=== PATIENT | female | born 1945 | race Caucasian/White ===

== ENCOUNTER → 2022-07-18 11:28 | Outpatient (CLI) | payer MEDICARE, SELFPAY ==
--- NOTE | ~2022-07-18 | XR_ITS ---
EXAMINATION: XR lumbar spine 2-3V DATE: 07/18/2022 11:42 INDICATION: Low back pain TECHNIQUE: Anteroposterior and lateral views of the lumbar spine, and cone-down lateral view of the l umbosacral junction were obtained. COMPARISON: None. FINDINGS: There are 2 mm of retrolisthesis of L5 on S1 and 2 mm of anterolisthesis of L4 on L5. There is no fracture. The vertebral body heights are maintained. There is moderate loss of intervertebral disc space height at L5-S1. There is mild loss of intervertebral disc space height throughout the rem ainder of the lumbar spine. The bowel gas pattern is normal. Calcified atherosclerosis is noted. Smal l degenerative osteophytes project from the anterior endplates of multiple vertebral bodies. IMPRESSION: 1. Mild to moderate lumbar spondylosis without acute findings. Reviewed, dictated and finalized at location B.
== END ==
PROVIDERS: PCP Family Medicine Adolescent Medicine; Visit Provider Family Medicine Adolescent Medicine
DX: M47.896 Other spondylosis, lumbar region (principal)
CPT/HCPCS: 72100

== ENCOUNTER 2022-11-10 11:23 | Emergency (ER) | payer MEDICARE, SELFPAY ==
--- NOTE | 2022-11-10 11:25 | ED.URI ---
HPI - URI/Sore Throat General Chief Complaint: Upper Respiratory Infection Stated Complaint: sinus inf Time Seen by Provider: 11/10/22 11:25 Source: patient and RN notes reviewed History of Present Illness HPI Narrative: Patient is a 77-year-old female who presents to urgent care with complaints of possible sinus infection. Patient states that she has had nasal congestion, rhinorrhea and facial pain for 1 week which exacerbated yesterday with left-sided facial swelling and pain. Patient has been taking [id number] allergy medication. Denies any fevers. Denies any cough or shortness of breath. No other acute complaints. No acute distress noted. Patient aware of the plan of care. Some parts of this dictation were generated by voice recognition software and may contain typographical and/or grammatical inaccuracies. Related Data Home Medications Medication Instructions Recorded Confirmed cholecalciferol (vitamin D3) 25 25 mcg PO DAILY 12/03/21 11/10/22 mcg (1,000 unit) capsule Allergies Allergy/AdvReac Type Severity Reaction Status Date / Time No Known Allergies Allergy Verified 11/10/22 11:51 Review of Systems Review of Systems: CONSTITUTIONAL: Denies fever, chills, or sweats. EYES: Denies visual changes, redness, or discharge. ENT: Reports rhinorrhea, nasal congestion, postnasal drainage and left-sided facial pressure and pain CARDIOVASCULAR: Denies chest pain, palpitations, or edema. RESPIRATORY: Denies cough or dyspnea. GASTROINTESTINAL: Denies abdominal pain, nausea, vomiting, or diarrhea. GENITOURINARY: Denies dysuria or hematuria. SKIN: Denies rash or itching. MUSCULOSKELETAL: Denies back pain, joint pain, or myalgia. NEUROLOGIC: Denies headache, numbness, or weakness. All other systems reviewed are negative, except as documented in HPI. [facility] Surgical History Surgical History History of appendectomy 2006 Family History Family History Father Diabetes mellitus Alzheimer's dementia Mother Hypertension Carcinoma of colon Rheumatoid arthritis Ovarian cancer Social History Social History (Updated 12/03/21 @ 14:56 by Mercy Mcgovern MA) Smoking status: Never smoker Second hand tobacco smoke exposure: No Alcohol intake: never Substance use: never Substance use type: does not use Living arrangements: with family Occupation/Education: occupation Gender identity (if verbalized by the patient): Female Sexual Orientation (if Verbalized by the Patient): Straight or Heterosexual Spiritual care concerns: No Agree to blood products: Yes Comments At the time of my signature, I reviewed and agree with the nursing past medical, surgical, social, and family history. There is no relevant family history pertinent to the patient complaint. Exam Narrative: GENERAL: This is a well-nourished, well-developed patient, in no apparent distress. HEAD: normocephalic, atraumatic. EYES: PERRL. Sclera clear/white. Vision is grossly intact. EARS: External ears normal, auditory canals clear and without drainage, TMs normal without perforation. Hearing grossly intact. NOSE: External nose normal with no obvious nasal discharge, mild bilateral erythema nares with clear rhinorrhea THROAT: Mucous membranes moist, posterior pharynx clear. Moderate postnasal drainage DENTAL: Mild to moderate edema and erythema noted to the left upper quadrant near crowned molars NECK: Neck supple, non-tender without lymphadenopathy RESPIRATORY: Clear to auscultation. Breath sounds equal bilaterally. No wheezes, rales, or rhonchi. . SKIN: warm, intact with no suspicious lesions or rash, good texture and turgor. NEURO: awake, alert, and oriented to person, place and time. There were no obvious focal neurologic abnormalities. EXTREMITIES: No clubbing, cyanosis, or edema. Course Course Level of Care: Ex
[2022-11-10 11:55] VITALS: BP 131/63; PULSE 68; RESP 16; TEMP 36.7; O2SAT 100
== END 2022-11-10 12:09 | disposition home or self-care (01) ==
PROVIDERS: Emergency Provider Nurse Practitioner Family; PCP Family Medicine Adolescent Medicine
DX: K06.1 Gingival enlargement (principal); J32.1 Chronic frontal sinusitis
CPT/HCPCS: 99213; G0463

== ENCOUNTER → 2023-05-13 08:57 | Outpatient (CLI) | payer MEDICARE, SELFPAY ==
--- NOTE | ~2023-05-13 | XR_ITS ---
EXAMINATION: XR shoulder LT min 2V DATE: 05/13/2023 09:17 INDICATION: Left shoulder pain. TECHNIQUE: 4 views of left shoulder were obtained. COMPARISON: None. FINDINGS: Bone alignment is normal. No fracture. There is mild osteoarthritis of glenohumeral joint a nd moderate osteoarthritis of acromioclavicular joint. IMPRESSION: 1. Polyarticular osteoarthritis. Reviewed, dictated and finalized at location A.
== END ==
PROVIDERS: PCP Family Medicine Adolescent Medicine; Visit Provider Nurse Practitioner Family
DX: M19.012 Primary osteoarthritis, left shoulder (principal)
CPT/HCPCS: 73030

== ENCOUNTER 2023-05-26 10:01 | Emergency (ER) | payer MEDICARE, SELFPAY ==
[2023-05-26 10:14] VITALS: BP 122/91; PULSE 66; RESP 20; TEMP 36.2; O2SAT 99
--- NOTE | 2023-05-26 10:17 | ED.EXTPRO ---
HPI - Extremity Problem General Chief complaint: Extremity Injury, Upper Stated complaint: Pain in Left shoulder Time Seen by Provider: 05/26/23 10:17 Source: patient, RN notes reviewed and old records reviewed Mode of arrival: ambulatory Limitations: no limitations History of Present Illness HPI Narrative: 78-year-old female presents to the [facility] with complaints of continued pain in the left shoulder. States that she has had pain since February. Has been prescribe steroid my primary. Was also prescribed meloxicam and takes daily. Recently had an x-ray 05/13/23 which showed Polyarticular osteoarthritis. Patient states the pain has just continued. Was hoping for either different pain medication or an injection into the shoulder to help. Has an appointment with Ortho at [facility] June 05 Onset (ago): month(s) (2+) Related Data Home Medications Medication Instructions Recorded Confirmed cholecalciferol (vitamin D3) 25 25 mcg PO DAILY 12/03/21 05/26/23 mcg (1,000 unit) capsule Allergies Allergy/AdvReac Type Severity Reaction Status Date / Time No Known Allergies Allergy Verified 05/26/23 10:29 Review of Systems Review of Systems: All systems reviewed & are unremarkable except as noted in HPI and below Constitutional: Constitutional: Reports no additional constitutional complaints Eyes: Eyes: Reports no additional eye complaints ENT: Reports system reviewed and no additional complaints, except as documented Cardiovascular: Cardiovascular: Reports no additional cardiovascular complaints, Denies chest pain and Denies dyspnea Respiratory: Respiratory: Reports no additional respiratory complaints, Denies chest congestion, Denies cough and Denies dyspnea Gastrointestinal: Gastrointestinal: Reports no additional gastrointestinal complaints, Denies abdominal pain, Denies nausea and Denies vomiting Musculoskeletal: Musculoskeletal: Reports as per HPI and Reports arthralgias (left shoulder) Integumentary/Breasts: Skin/Breast: Reports system reviewed and no additional complaints, except as docu Neurologic: Reports system reviewed and no additional complaints, except as documented Psychiatric: Psychiatric: Reports no additional psychiatric complaints Allergic/Immunologic: Allergic/Immunologic: Reports no additional allergic/immunologic complaints PMFSH Past Medical History Medical History Aortic atherosclerosis CXR 01/11 Cystocele Essential (primary) hypertension Mixed hyperlipidemia Overactive bladder Surgical History Surgical History History of appendectomy 2006 Family History Family History Father Diabetes mellitus Alzheimer's dementia Mother Hypertension Carcinoma of colon Rheumatoid arthritis Ovarian cancer Social History Social History Smoking status: Never smoker Second hand tobacco smoke exposure: No Alcohol intake: never Substance use: never Substance use type: does not use Living arrangements: with family Occupation/Education: occupation Gender identity (if verbalized by the patient): Female Sexual Orientation (if Verbalized by the Patient): Straight or Heterosexual Spiritual care concerns: No Agree to blood products: Yes Comments At the time of my signature, I reviewed and agree with the nursing past medical, surgical, social, and family history. There is no relevant family history pertinent to the patient complaint. Exam Const: General: cooperative, healthy appearing, comfortable, no acute distress, well developed, alert and well nourished Nutritional Appearance: well nourished Orientation/consciousness: patient oriented x3 Limitations: no limitations HENMT: Head: normal to inspection Ears: hearing grossly normal bilaterally
== END 2023-05-26 10:32 | disposition home or self-care (01) ==
PROVIDERS: Emergency Provider Nurse Practitioner; PCP Family Medicine Adolescent Medicine
DX: M77.8 Other enthesopathies, not elsewhere classified (principal); M15.9 Polyosteoarthritis, unspecified; I70.0 Atherosclerosis of aorta; I10 Essential (primary) hypertension; E78.2 Mixed hyperlipidemia
CPT/HCPCS: 99213; A4565; G0463

== ENCOUNTER 2023-06-18 11:18 | Emergency (ER) | payer MEDICARE, SELFPAY ==
--- NOTE | 2023-06-18 11:26 | ED.URI ---
HPI - URI/Sore Throat General Chief Complaint: Upper Respiratory Infection Stated Complaint: Lethargic,Back Pain,Throat Irritation Source: patient and RN notes reviewed Mode of arrival: ambulatory Limitations: no limitations History of Present Illness HPI Narrative: Patient is a 78-year-old female who presents to the [facility] with complaints nausea, headache, and sore throat for the past 3 and half days. Patient also endorses some generalized body aches and chills. She denies abdominal pain, vomiting, diarrhea. Denies chest pain, shortness of breath, cough, congestion. She is unsure of any sick contacts. She does not appear in any acute distress. Related Data Home Medications Medication Instructions Recorded Confirmed cholecalciferol (vitamin D3) 25 25 mcg PO DAILY 12/03/21 06/18/23 mcg (1,000 unit) capsule Allergies Allergy/AdvReac Type Severity Reaction Status Date / Time No Known Allergies Allergy Verified 06/18/23 11:39 Review of Systems Review of Systems: CONSTITUTIONAL: Denies fever or sweats. Reports chills EYES: Denies visual changes, redness, or discharge. ENT: Denies otalgia. Reports sore throat. CARDIOVASCULAR: Denies chest pain, palpitations, or edema. RESPIRATORY: Denies cough or dyspnea. GASTROINTESTINAL: Denies abdominal pain, vomiting, or diarrhea. Reports nausea. GENITOURINARY: Denies dysuria or hematuria. SKIN: Denies rash or itching. MUSCULOSKELETAL: Denies joint pain. Reports myalgia. NEUROLOGIC: Reports headache but denies numbness or weakness. Pertinent positives per HPI. [facility] Past Medical History Medical History Aortic atherosclerosis CXR 01/11 Cystocele Essential (primary) hypertension Mixed hyperlipidemia Overactive bladder Surgical History Surgical History History of appendectomy 2006 Family History Family History Father Diabetes mellitus Alzheimer's dementia Mother Hypertension Carcinoma of colon Rheumatoid arthritis Ovarian cancer Social History Social History Smoking status: Never smoker Second hand tobacco smoke exposure: No Alcohol intake: never Substance use: never Substance use type: does not use Living arrangements: with family Occupation/Education: occupation Gender identity (if verbalized by the patient): Female Sexual Orientation (if Verbalized by the Patient): Straight or Heterosexual Spiritual care concerns: No Agree to blood products: Yes Comments At the time of my signature, I reviewed and agree with the nursing past medical, surgical, social, and family history. There is no relevant family history pertinent to the patient complaint. Exam Narrative: GENERAL: This is a well-nourished, well-developed patient, in no apparent distress. HEAD: normocephalic, atraumatic. EYES: PERRL. Sclera clear/white. Vision is grossly intact. EARS: External ears normal, auditory canals clear and without drainage, TMs normal without perforation. Hearing grossly intact. NOSE: External nose normal with no obvious nasal discharge, nares without redness, no rhinorrhea. THROAT: Mucous membranes moist, Oropharyngeal erythema without exudate or ulceration. NECK: Neck supple, non-tender without lymphadenopathy, masses or thyromegaly. CARDIOVASCULAR: Regular rate and rhythm without murmurs, gallops, or rubs. RESPIRATORY: Clear to auscultation. Breath sounds equal bilaterally. No wheezes, rales, or rhonchi. GASTROINTESTINAL: Abdomen soft, non-tender, nondistended. Bowel sounds are active. No hepato-splenomegaly, or palpable masses. No guarding. SKIN: warm, intact with no suspicious lesions or rash, good texture and turgor. NEURO: awake, alert, and oriented to person, place and time. There were no obvious focal neurolo
[2023-06-18 11:34] VITALS: BP 102/66; PULSE 82; RESP 16; TEMP 36.3; O2SAT 99
== END 2023-06-18 12:00 | disposition home or self-care (01) ==
PROVIDERS: Emergency Provider Nurse Practitioner; PCP Family Medicine Adolescent Medicine
DX: B34.9 Viral infection, unspecified (principal); E78.2 Mixed hyperlipidemia; I10 Essential (primary) hypertension; Z20.822 Contact with and (suspected) exposure to COVID-19
CPT/HCPCS: 87081; 87426; 87804; 87880; 99213; C9803; G0463

== ENCOUNTER 2023-09-19 10:07 | Emergency (ER) | payer MEDICARE, SELFPAY ==
[2023-09-19 10:23] VITALS: BP 152/90; PULSE 86; RESP 16; TEMP 36.9; O2SAT 98
--- NOTE | 2023-09-19 10:44 | ED.URI ---
HPI - URI/Sore Throat General Chief Complaint: Upper Respiratory Infection Stated Complaint: Sore Throat History of Present Illness HPI Narrative: 78 y/o female presented for c/o cough, and head congestion for about 3 days. Denies sob, wheezing, n/v/d/f/c. Taking coricidin and cough drops. Took home covid test but does not know how to read it, states she saw a few lines. Related Data Home Medications Medication Instructions Recorded Confirmed cholecalciferol (vitamin D3) 25 25 mcg PO DAILY 12/03/21 09/19/23 mcg (1,000 unit) capsule fluticasone propionate 50 2 spray intranasal .PRN 09/09/23 09/19/23 mcg/actuation nasal spray,suspension (Flonase Allergy Relief) meloxicam 15 mg tablet 15 mg PO .PRN PRN Mild Pain (Scale 09/09/23 09/19/23 Score 1-4) Allergies Allergy/AdvReac Type Severity Reaction Status Date / Time No Known Allergies Allergy Verified 09/19/23 10:22 Review of Systems Review of Systems: CONSTITUTIONAL: Denies body aches, fever, chills, or sweats. EYES: Denies visual changes, redness, or discharge. ENT: reports rhinorrhea, congestion, denies sore throat, otalgia. CARDIOVASCULAR: Denies chest pain, palpitations, or edema. RESPIRATORY: Reports cough Denies dyspnea. GASTROINTESTINAL: Denies abdominal pain, nausea, vomiting, or diarrhea. SKIN: Denies rash, itching, or wounds. MUSCULOSKELETAL: Denies back pain, joint pain, or myalgia. NEUROLOGIC: Denies headache PMFSH Past Medical History Medical History Aortic atherosclerosis CXR 01/11 Cystocele Essential (primary) hypertension Mixed hyperlipidemia Overactive bladder Surgical History Surgical History History of appendectomy 2006 Family History Family History Father Diabetes mellitus Alzheimer's dementia Mother Hypertension Carcinoma of colon Rheumatoid arthritis Ovarian cancer Social History Social History Smoking status: Never smoker Second hand tobacco smoke exposure: No Alcohol intake: never Substance use: never Substance use type: does not use Living arrangements: with family Occupation/Education: occupation Gender identity (if verbalized by the patient): Female Sexual Orientation (if Verbalized by the Patient): Straight or Heterosexual Spiritual care concerns: No Agree to blood products: Yes Exam Narrative: GENERAL: well-appearing, no acute distress. EYES: conjunctivae clear ENT: Mucous membranes moist. TMs pearly green with normal light reflex bilaterally; no tragal tenderness. Oropharynx erythematous without lesions. No drooling, no hoarseness, no trismus, uvula midline. No tripod positioning, hot potato voice, or soft palate swelling. NECK: Supple. No lymphadenopathy CHEST: Clear to auscultation, breath sounds equal. No respiratory distress, speaks in full sentences. 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 HEART: Regular rate and rhythm. No murmur heard. SKIN: Warm, dry, no rash. NEURO: Alert and oriented x3. Course Course Emergency Course: Patient is aware of diagnosis, understands and agrees to treatment plan. Anticipatory guidance given. Patient agrees to follow-up as directed and is aware of reasons to seek care at the emergency department. Portions of this record may have been created with voice recognition software Level of Care: Express Care Visit Vital Signs Vital signs: Vital Signs Temperature 98.5 F 09/19/23 10:23 Pulse Rate 86 09/19/23 10:23 Respiratory Rate 16 09/19/23 10:23 Blood Pressure 152/90 H 09/19/23 10:23 Pulse Oximetry 98 09/19/23 10:23 Temperature 98.5 F 09/19/23 10:23 Pulse Rate 86 09/19/23 10:23 Respiratory Rate 16 09/19/23 10:23 Blood Pressure 152/90 H 09/19/23 10:23 Pulse Oximetry 98 09/19/23 10
== END 2023-09-19 11:27 | disposition home or self-care (01) ==
PROVIDERS: Emergency Provider Nurse Practitioner Family; PCP Family Medicine Adolescent Medicine
DX: U07.1 COVID-19 (principal); I10 Essential (primary) hypertension; E78.2 Mixed hyperlipidemia; Z79.1 Long term (current) use of non-steroidal anti-inflammatories (NSAID)
CPT/HCPCS: 87426; 99213; C9803; G0463

== ENCOUNTER 2024-03-10 08:34 | Outpatient (CLI) | payer MEDICARE, SELFPAY ==
--- NOTE | 2024-03-10 08:37 | EST_ITS ---
Patient Info Name: Katy Arreola Age: 79 years : 1945 Gender: Female Ht: 62 in Wt: 165 lbs BSA: 1.84 m2 HR: 58 bpm BP: 130 / 80 mmHg Heart Rhythm: Sinus Rhythm Technical Quality: Good Exam Date: 03/10/2024 8:54 AM Exam Location: Echo Lab Patient Status: Outpatient Admit Date: 03/10/2024 Staff Ordering Physician: Anirudh Carlos MD Hi Ranger Operator: Lauren Carrillo RDCS Attending Provider: DR. CHIN Referring Physician: Breanna CARLOS; Exercise Technologist: Lauren Carrillo RDCS Exercise Physician: Jaiden Chin DO Exam Type: CA stress echo Study Info Indications R07.9 - Chest pain, unspecified Treadmill exercise stress echocardiogram is performed. Summary 1. 1. Negative Erickson exercise stress test for ischemic ST changes by ECG criteria. 2. 2. Poor functional capacity, achieving 4.7 METs of workload. 3. 3. Appropriate HR response to exercise. 4. 4. Appropriate HR recovery at 1 minute post exercise. 5. 5. Negative stress echocardiogram for ischemia by wall motion analysis. 6. 6. Patient informed of the above results. Stress Echo Findings Left Ventricle Appropriate increase in LV endocardial thickening with systole. Appropriate augmentation of contractility with systole. No wall motion abnormality. Left Ventricle Normal LV systolic function, no wall motion abnormality. Protocol: Erickson Stress ECG Details Stage: REST Duration (min): 9 min : 14 sec Speed (mph): 0.0 Grade (%): 0 HR (bpm): 61 SBP (mmHg): 209 DBP (mmHg): 61 METS: --- Stage: REST Duration (min): 18 min : 16 sec Speed (mph): 0.0 Grade (%): 0 HR (bpm): 67 SBP (mmHg): 130 DBP (mmHg): 80 METS: --- Stage: STAGE 1 Duration (min): 1 min : 0 sec Speed (mph): 1.7 Grade (%): 10 HR (bpm): 94 SBP (mmHg): 130 DBP (mmHg): 80 METS: --- Stage: STAGE 1 Duration (min): 2 min : 0 sec Speed (mph): 1.7 Grade (%): 10 HR (bpm): 118 SBP (mmHg): 130 DBP (mmHg): 80 METS: --- Stage: STAGE 1 Duration (min): 3 min : 0 sec Speed (mph): 1.7 Grade (%): 10 HR (bpm): 125 SBP (mmHg): 130 DBP (mmHg): 80 METS: --- Stage: STAGE 2 Duration (min): 0 min : 1 sec Speed (mph): 0.0 Grade (%): 0 HR (bpm): 125 SBP (mmHg): 130 DBP (mmHg): 80 METS: --- Stage: RECOVERY Duration (min): 0 min : 58 sec Speed (mph): 0.0 Grade (%): 0 HR (bpm): 105 SBP (mmHg): 140 DBP (mmHg): 72 METS: --- Stage: RECOVERY Duration (min): 1 min : 58 sec Speed (mph): 0.0 Grade (%): 0 HR (bpm): 79 SBP (mmHg): 140 DBP (mmHg): 72 METS: --- Stage: RECOVERY Duration (min): 2 min : 58 sec Speed (mph): 0.0 Grade (%): 0 HR (bpm): 66 SBP (mmHg): 140 DBP (mmHg): 72 METS: --- Stage: RECOVERY Duration (min): 3 min : 13 sec Speed (mph): 0.0 Grade (%): 0 HR (bpm): 72 SBP (mmHg): 130 DBP (mmHg): 80 METS: --- Rest HR: 67 bpm Peak HR: 125 bpm Rest Sys BP: 130 mmHg Peak Sys BP: 130 mmHg Max Pred HR: 143 bpm % Max Pred HR: 87 % Target HR: 122 bpm Max R
== END 2024-03-10 08:35 | disposition home or self-care (01) ==
LOC: ANHCARD 08:36
PROVIDERS: PCP Family Medicine Adolescent Medicine; Visit Provider Family Medicine Adolescent Medicine
DX: R07.9 Chest pain, unspecified (principal)
CPT/HCPCS: 93351